=== PATIENT | female | born 1950 | race Caucasian/White ===

== ENCOUNTER → 2020-08-13 | Outpatient (CLI) | payer MEDICARE, OTHER ==
[~2020-08-13] MED LIST: AMLODIPINE BESYL5 MG PO; CLOPIDOGREL75 MG PO; IBUPROFEN400 MG PO; LISINOPRIL5 MG PO; LOPRESSOR 25 MG25 MG PO; NEURONTIN400 MG PO; NICOTINE PATCH1 EAC1 TD; NORCO 5-325 TA1 EACH PO; OMNICEF 300 MG300 MG PO; OXYBUTYNIN CHLOR5 MG PO; ST. JOSEPH ASPI81 M1 PO; VENTOLIN HFA 66.7 GM INH; VITAMIN D31250 MCG PO; ZOCOR10 MG PO
== END ==
LOC: KOH-I 15:13
DX: S92.352A Displaced fracture of fifth metatarsal bone, left foot, initial encounter for closed fracture (principal); X58.XXXA Exposure to other specified factors, initial encounter
CPT/HCPCS: 73610; 73630

== ENCOUNTER 2020-09-18 09:23 | Emergency (ER) | payer MEDICARE, OTHER ==
[2020-09-18 09:53] LABS: HEMOGLOBIN 13.5 gm/dl (12.3-15.3); RED BLOOD COUNT 4.45 M/UL (4.00-5.10); WHITE BLOOD COUNT 6.3 K/UL (4.5-11.0)
[2020-09-18 10:22] LABS: BUN/CREATININE RATIO 19 (0-10)
== END 2020-09-18 12:40 | disposition home or self-care (01) ==
LOC: ER1 09:23
PROVIDERS: Emergency Medicine
DX: R50.83 Postvaccination fever (principal); Z20.822 Contact with and (suspected) exposure to COVID-19
CPT/HCPCS: 0240U; 70450; 71045; 80053; 81001; 82550; 82553; 83605; 83690; 83735; 83874; 84484; 85025; 87040; 87086; 93005; 99285

== ENCOUNTER 2021-04-18 20:52 | Emergency (ER) | payer MEDICARE, OTHER ==
[2021-04-18] MEDS ORDERED: HYDROCODON-ACE1 EAC4 PO (22:13)
== END 2021-04-18 22:40 | disposition home or self-care (01) ==
LOC: ER1 20:52
DX: S42.211A Unspecified displaced fracture of surgical neck of right humerus, initial encounter for closed fracture (principal); E11.9 Type 2 diabetes mellitus without complications; I10 Essential (primary) hypertension; Z95.1 Presence of aortocoronary bypass graft; Z90.49 Acquired absence of other specified parts of digestive tract; F17.210 Nicotine dependence, cigarettes, uncomplicated; W01.0XXA Fall on same level from slipping, tripping and stumbling without subsequent striking against object, initial encounter
CPT/HCPCS: 73030; 73080; 99283

== ENCOUNTER 2021-05-04 20:30 | Inpatient (IN) | payer MEDICARE, OTHER ==
[~2021-05-04] VITALS: Ht 154.9 cm; Wt 48.5 kg
[~2021-05-04 20:30] MED LIST changes: +AUGMENTIN 875-1 EACH PO; +HYDROCODON-ACE1 EAC4 PO
[2021-05-04 21:36] LABS: HEMOGLOBIN 14.1 gm/dl (12.3-15.3); RED BLOOD COUNT 4.62 M/UL (4.00-5.10); WHITE BLOOD COUNT 14.5 K/UL (4.5-11.0)
[2021-05-04 21:58] LABS: BUN/CREATININE RATIO 19 (0-10)
[2021-05-04 22:24] LABS: ADENOVIRUS F 40/41 Not Detected (Negative); ASTROVIRUS Not Detected (Negative); CAMPYLOBACTER Not Detected (Negative); CLOSTRIDIUM DIFFICILE TOX A/B Not Detected (Negative); CRYPTOSPORIDIUM Not Detected (Negative); E.COLI 0157 Not Detected (Negative); ENTAMOEBA HISTOLYTICA Not Detected (Negative); ENTEROTOXIGENIC E.COLI (ETEC) Not Detected (Negative); GIARDIA LAMBLIA Not Detected (Negative); NOROVIRUS GI/GII Not Detected (Negative); PLESIOMONAS SHIGELLOIDES Not Detected (Negative); ROTOVIRUS A Not Detected (Negative); SALMONELLA Not Detected (Negative); SAPOVIRUS Not Detected (Negative); SHIG/ENTEROINVAS.ECOLI (EIEC) Not Detected (Negative); SHIGA-LIK TOX.PRO.E.COLI (STEC Not Detected (Negative); VIBRIO Not Detected (Negative); VIBRIO CHOLERAE Not Detected (Negative); YERSINIA ENTEROCOLITICA Not Detected (Negative)
[2021-05-05] MEDS ORDERED: LIPITOR TAB 1010 MG PO (04:00)
[2021-05-05 06:37] LABS: HEMOGLOBIN 12.1 gm/dl (12.3-15.3); RED BLOOD COUNT 3.99 M/UL (4.00-5.10); WHITE BLOOD COUNT 20.9 K/UL (4.5-11.0)
[2021-05-05 07:59] LABS: ENTEROAGGREGATIVE E.COLI (EAEC DETECTED (Negative); ENTEROPATHOGENIC E.COLI (EPEC) DETECTED (Negative)
[2021-05-07] MEDS ORDERED: LEVOFLOXACIN750 MG PO (14:22)
--- NOTE | 2021-05-07 16:18 | NUR ---
[facility].
--- NOTE | 2021-05-07 16:23 | NUR ---
DUE TO UNSTEADY GAIT, PATIENT REUIRES THE ASSISTANCE OF ANOTHER TO LEAVE THE HOME.
== END 2021-05-07 16:18 | disposition home health service (06) | DRG 371 ==
LOC: ER1 20:30 → MED SURG 4 05-05 02:12 → CDU 05-05 02:12 → MED SURG 4 05-05 03:47
PROVIDERS: Family Medicine; ADMIT Internal Medicine
DX: A04.4 Other intestinal Escherichia coli infections (principal); J69.0 Pneumonitis due to inhalation of food and vomit; S42.91XA Fracture of right shoulder girdle, part unspecified, initial encounter for closed fracture; Z20.822 Contact with and (suspected) exposure to COVID-19; E87.2 Acidosis; E44.0 Moderate protein-calorie malnutrition; I42.9 Cardiomyopathy, unspecified; I50.42 Chronic combined systolic (congestive) and diastolic (congestive) heart failure; E87.1 Hypo-osmolality and hyponatremia; N17.9 Acute kidney failure, unspecified; I11.0 Hypertensive heart disease with heart failure; R13.10 Dysphagia, unspecified; E78.5 Hyperlipidemia, unspecified; I95.9 Hypotension, unspecified; I50.9 Heart failure, unspecified; I71.4 Abdominal aortic aneurysm, without rupture; F17.210 Nicotine dependence, cigarettes, uncomplicated; I25.10 Atherosclerotic heart disease of native coronary artery without angina pectoris; E86.0 Dehydration; W18.30XA Fall on same level, unspecified, initial encounter; Z79.82 Long term (current) use of aspirin; Z79.01 Long term (current) use of anticoagulants; Z91.81 History of falling; Z86.73 Personal history of transient ischemic attack (TIA), and cerebral infarction without residual deficits; Z95.1 Presence of aortocoronary bypass graft; Z90.49 Acquired absence of other specified parts of digestive tract; Z83.3 Family history of diabetes mellitus; Z68.20 Body mass index [BMI] 20.0-20.9, adult
CPT/HCPCS: 36415; 71045; 73030; 74230; 80048; 80053; 82272; 82550; 82553; 83605; 83690; 83735; 84100; 84484; 85025; 87507; 89055; 92526; 92610; 92611-GN; 93005; 96365; 97162; 97165; 99285; J1650; J2405; J2543; J7030; U0002

== ENCOUNTER → 2022-03-02 | Outpatient (CLI) | payer MEDICARE, OTHER ==
[~2022-03-02] MED LIST changes: +LEVOFLOXACIN750 MG PO; +LIPITOR TAB 1010 MG PO
== END ==
LOC: KOH-I 14:17
DX: S92.001A Unspecified fracture of right calcaneus, initial encounter for closed fracture (principal)
CPT/HCPCS: 73630; 73650

== ENCOUNTER → 2022-03-30 | Outpatient (CLI) | payer MEDICARE, OTHER | LOC: KOH-I 11:03 | DX: Z87.81 Personal history of (healed) traumatic fracture (principal) | CPT/HCPCS: 73650 ==